=== PATIENT | female | born 1955 | race African-American/Black ===

== ENCOUNTER 2018-11-20 00:03 | Emergency (ER) | payer OTHER ==
[~2018-11-20] VITALS: Ht 165.1 cm; Wt 118.0 kg
[~2018-11-20 00:03] MED LIST: CHOLESTEROL; LISI-604 PO; METF-414 PO
[2018-11-20] MEDS ORDERED: SODIUM CHLORIDE 0.9% 1,000 ML IV ONE (01:43)
[2018-11-20] MEDS ORDERED: KETOROLAC 30MG/ML VIAL IV STA (01:43)
[2018-11-20 03:33] LABS: CLARITY URINE TURBID (CLEAR); COLOR URINE YELLOW (YELLOW); KETONES URINE NEGATIVE (NEGATIVE); LEUKOCYTE ESTERASE URINE 2+ (NEGATIVE); NITRITE URINE NEGATIVE (NEGATIVE); OCCULT BLOOD URINE 1+ (NEGATIVE); PROTEIN URINE NEGATIVE (NEGATIVE); SPECIFIC GRAVITY URINE 1.012 (1.005-1.030); UROBILINOGEN URINE 0.2 E.U./dL (0.2-1.0)
[2018-11-20 04:00] VITALS: BP 153/65
== END 2018-11-20 04:03 | disposition home or self-care (01) ==
LOC: ER 00:03
DX: N20.0 Calculus of kidney (principal); N39.0 Urinary tract infection, site not specified; E11.9 Type 2 diabetes mellitus without complications; I10 Essential (primary) hypertension; E78.00 Pure hypercholesterolemia, unspecified; F41.9 Anxiety disorder, unspecified; F32.9 Major depressive disorder, single episode, unspecified
CPT/HCPCS: 74176; 81003; 87086; 96361; 96374; 99284; J1885; J7030

== ENCOUNTER 2021-07-13 14:47 | Emergency (ER) | payer MEDICARE, OTHER ==
[~2021-07-13] VITALS: Ht 167.6 cm; Wt 117.0 kg
[~2021-07-13 14:47] MED LIST changes: -LISI-604 PO; +LISI20TA31 PO
[2021-07-13] MEDS ORDERED: HYDR25TA PO (14:58)
[2021-07-13] MEDS ORDERED: DICL75TA5 PO (14:58)
[2021-07-13] MEDS ORDERED: ASPI-1497 PO (14:58)
[2021-07-13] MEDS ORDERED: SERT-112 PO (14:58)
[2021-07-13] MEDS ORDERED: PANT40TA51 PO (14:58)
[2021-07-13] MEDS ORDERED: ATOR20TA65 PO (14:58)
[2021-07-13] MEDS ORDERED: DIPHENHYDRAMINE 25MG CAPSULE PO ONE (15:15)
[2021-07-13] MEDS ORDERED: PREDNISONE 20MG TABLET PO ONE (15:15)
[2021-07-13] MEDS ORDERED: FAMOTIDINE 20MG TABLET PO ONE (15:15)
[2021-07-13] MEDS ORDERED: P20 MT (17:21)
[2021-07-13] MEDS ORDERED: DIPH25CA83 MT (17:21)
[2021-07-13 18:16] VITALS: BP 118/84
== END 2021-07-13 18:19 | disposition home or self-care (01) ==
LOC: ER 14:54
DX: T78.49XA Other allergy, initial encounter (principal); E11.9 Type 2 diabetes mellitus without complications; I10 Essential (primary) hypertension; F41.9 Anxiety disorder, unspecified; F32.A Depression, unspecified; E78.00 Pure hypercholesterolemia, unspecified; Z79.84 Long term (current) use of oral hypoglycemic drugs; Z79.82 Long term (current) use of aspirin; X58.XXXA Exposure to other specified factors, initial encounter
CPT/HCPCS: 99284; J7512; Q0163